=== PATIENT | male | born 1945 | race Asian ===

== ENCOUNTER 2017-10-20 18:19 | Emergency (ER) | payer MEDICAID ==
[~2017-10-20] VITALS: Ht 172.7 cm; Wt 100.0 kg
[~2017-10-20 18:19] MED LIST: APIX5TAB PO; FAMO20TA8 PO; GLIP10TA10 PO; LOSA1TAB34 PO; METF10004 PO; VITA1TAB20 PO
[2017-10-20 19:24] LABS: BASOPHILS % 0.4 % (0.0-2.0); EOSINOPHILS % 2.4 % (0.0-5.0); HEMOGLOBIN. 14.6 g/dL (14.0-18.0); LYMPHOCYTES % 23.3 % (20.0-50.0); MEAN CORPUSCULAR HEMOGLOBIN 31.8 pg (28.0-32.0); MEAN CORPUSCULAR VOLUME 91.3 fL (80.0-94.0); MEAN PLATELET VOLUME 7.7 fl (7.4-10.4); MONOCYTES % 10.4 % (2.0-8.0); NEUTROPHILS % 63.5 % (40.0-76.0); PLATELET 178 x1000/uL (130-400); RED CELL DISTRIBUTION WIDTH 12.5 % (11.6-14.6)
[2017-10-20 19:31] LABS: PROTHROMBIN TIME 10.2 sec (9.1-11.1)
[2017-10-20 19:32] LABS: CHLORIDE 100 mEq/L (98-107)
[2017-10-20 21:08] VITALS: BP 156/83
== END 2017-10-20 21:33 | disposition home or self-care (01) ==
LOC: ER 18:19
DX: S09.8XXA Other specified injuries of head, initial encounter (principal); E11.9 Type 2 diabetes mellitus without complications; I10 Essential (primary) hypertension; Z86.73 Personal history of transient ischemic attack (TIA), and cerebral infarction without residual deficits; Z79.84 Long term (current) use of oral hypoglycemic drugs; W01.0XXA Fall on same level from slipping, tripping and stumbling without subsequent striking against object, initial encounter; Y93.89 Activity, other specified; Y92.018 Other place in single-family (private) house as the place of occurrence of the external cause
CPT/HCPCS: 36415; 70450; 80053; 85025; 85610; 99285

== ENCOUNTER 2017-11-19 16:55 | Inpatient (IN) | payer MEDICAID ==
[~2017-11-19] VITALS: Ht 165.1 cm; Wt 85.3 kg
[2017-11-19 19:50] LABS: BASOPHILS % 0.3 % (0.0-2.0); EOSINOPHILS % 1.5 % (0.0-5.0); HEMATOCRIT. 47.8 % (42.0-52.0); HEMOGLOBIN. 16.4 g/dL (14.0-18.0); LYMPHOCYTES % 13.2 % (20.0-50.0); MEAN CORPUSCULAR HEMOGLOBIN 31.6 pg (28.0-32.0); MEAN CORPUSCULAR VOLUME 92.4 fL (80.0-94.0); MEAN PLATELET VOLUME 7.9 fl (7.4-10.4); PLATELET 173 x1000/uL (130-400); RED BLOOD CELL COUNT 5.17 mill/uL (4.7-6.1); RED CELL DISTRIBUTION WIDTH 12.7 % (11.6-14.6)
[2017-11-19 19:57] LABS: CHLORIDE 100 mEq/L (98-107)
[2017-11-19] MEDS ORDERED: CEFTRIAXONE 1 G PREMIX 50 ML IV ONE (22:00)
[2017-11-19] MEDS ORDERED: AZITHROMYCIN 500 MG in DEXT 5% WATER 250 ML IV ONE (22:00)
[2017-11-19] MEDS ORDERED: IOHEXOL-350 100 ML BOTTLE ONE (23:17)
[2017-11-20] MEDS ORDERED: HYDROCODONE/ACETAMINOPHEN 5/325MG TABLET PO PRN
[2017-11-20] MEDS ORDERED: IPRATROPIUM/ALBUTEROL 0.5-3(2.5)MG/3ML NEB INH PRN
[2017-11-20] MEDS ORDERED: ONDANSETRON HCL 4MG/2ML INJ IV PRN
[2017-11-20] MEDS ORDERED: DOCUSATE SODIUM 100MG CAPSULE PO PRN
[2017-11-20] MEDS ORDERED: GUAIFENESIN 200MG/10ML SUGAR FREE UDC PO PRN
[2017-11-20] MEDS ORDERED: ACETAMINOPHEN 325MG TABLET PO PRN
[2017-11-20] MEDS ORDERED: CEFTRIAXONE 1 G PREMIX 50 ML IV SCH
[2017-11-20] MEDS: AZITHROMYCIN 500 MG in DEXT 5% WATER 250 ML IV SCH (01:56)
[2017-11-20 04:00] VITALS: BP 142/80
[2017-11-20] MEDS ORDERED: DEXTROSE 50% WATER 50ML SYRINGE IV PRN (05:15)
[2017-11-20] MEDS ORDERED: INSU100I28 SQ (05:35)
[2017-11-20] MEDS ORDERED: SITA1TAB6 MT (05:35)
[2017-11-20 06:17] LABS: CLARITY URINE CLEAR (CLEAR); COLOR URINE YELLOW (YELLOW); KETONES URINE TRACE (NEGATIVE); LEUKOCYTE ESTERASE URINE 1+ (NEGATIVE); NITRITE URINE NEGATIVE (NEGATIVE); OCCULT BLOOD URINE TRACE (NEGATIVE); PROTEIN URINE 1+ (NEGATIVE); SPECIFIC GRAVITY URINE 1.047 (1.005-1.030); UROBILINOGEN URINE 0.2 E.U./dL (0.2-1.0)
[2017-11-20] MEDS: BLOOD SUGAR DIAGNOSTIC STRIP TEST SCH ×4 (06:25→21:00)
[2017-11-20] MEDS: INSULIN LISPRO 100 UNITS/ML SUBCUT SCH ×4 (06:25→21:01)
[2017-11-20 06:45] LABS: CANNABINOID URINE SCREEN NEGATIVE (NEGATIVE); OPIATES URINE SCREEN NEGATIVE (NEGATIVE); PHENCYCLIDINE URINE SCREEN NEGATIVE (NEGATIVE)
[2017-11-20 06:47] LABS: *AMPHETAMINES SCREEN URINE NEGATIVE (NEGATIVE); *BARBITURATES SCREEN URINE NEGATIVE (NEGATIVE); *BENZODIAZEPINES SCREEN URINE NEGATIVE (NEGATIVE); *COCAINE SCREEN URINE NEGATIVE (NEGATIVE); METHADONE URINE SCREEN NEGATIVE (NEGATIVE)
[2017-11-20] MEDS: CEFTRIAXONE 1 G PREMIX 50 ML IV SCH (06:54)
[2017-11-20 08:00] VITALS: BP 156/78
[2017-11-20 09:44] LABS: BASOPHILS % 0.2 % (0.0-2.0); EOSINOPHILS % 1.4 % (0.0-5.0); HEMATOCRIT. 44.5 % (42.0-52.0); HEMOGLOBIN. 15.7 g/dL (14.0-18.0); MEAN CORPUSCULAR HEMOGLOBIN 32.2 pg (28.0-32.0); MEAN CORPUSCULAR VOLUME 91.7 fL (80.0-94.0); MEAN PLATELET VOLUME 7.9 fl (7.4-10.4); MONOCYTES % 7.9 % (2.0-8.0); NEUTROPHILS % 79.5 % (40.0-76.0); PLATELET 159 x1000/uL (130-400); RED BLOOD CELL COUNT 4.85 mill/uL (4.7-6.1); RED CELL DISTRIBUTION WIDTH 12.5 % (11.6-14.6)
[2017-11-20 10:13] LABS: CHLORIDE 98 mEq/L (98-107)
[2017-11-20 10:26] LABS: LDL CHOLESTEROL 76 mg/dL (5-100)
[2017-11-20 10:27] LABS: CREATINE KINASE 48 IU/L (39-308)
[2017-11-20 10:29] LABS: CREATINE KINASE MB FRACTION < 1.0 ng/mL (0.5-3.6)
[2017-11-20 10:36] LABS: HDL CHOLESTEROL 38 mg/dL (40-59)
[2017-11-20 12:00] VITALS: BP 145/89
[2017-11-20] MEDS: FAMOTIDINE 20MG TABLET PO SCH (13:30)
[2017-11-20] MEDS: HYDROCHLOROTHIAZIDE 12.5MG CAPSULE PO SCH (13:30)
[2017-11-20] MEDS: LOSARTAN POTASSIUM 50 MG TABLET PO SCH (13:30)
[2017-11-20 16:00] VITALS: BP_SYST 159; BP_SYST 163; BP_DIAS 70; BP_DIAS 78
[2017-11-20] MEDS: ENOXAPARIN 100MG/ML SYR SUBCUT SCH ×2 (16:37→22:07)
[2017-11-20 20:00] VITALS: BP 168/83
[2017-11-20 20:30] VITALS: BP 137/82
[2017-11-21] VITALS: BP 150/90
[2017-11-21] MEDS: AZITHROMYCIN 500 MG in DEXT 5% WATER 250 ML IV SCH (01:53)
[2017-11-21 04:00] VITALS: BP_SYST 166; BP_SYST 183; BP_DIAS 101; BP_DIAS 93
[2017-11-21] MEDS: CEFTRIAXONE 1 G PREMIX 50 ML IV SCH (05:23)
[2017-11-21] MEDS: BLOOD SUGAR DIAGNOSTIC STRIP TEST SCH ×4 (06:30→21:48)
[2017-11-21] MEDS: INSULIN LISPRO 100 UNITS/ML SUBCUT SCH ×4 (06:30→21:48)
[2017-11-21 06:46] LABS: BASOPHILS % 0.2 % (0.0-2.0); EOSINOPHILS % 1.8 % (0.0-5.0); HEMATOCRIT. 44.4 % (42.0-52.0); HEMOGLOBIN. 15.7 g/dL (14.0-18.0); LYMPHOCYTES % 13.5 % (20.0-50.0); MEAN CORPUSCULAR HEMOGLOBIN 32.6 pg (28.0-32.0); MEAN CORPUSCULAR VOLUME 92.1 fL (80.0-94.0); MEAN PLATELET VOLUME 8.4 fl (7.4-10.4); MONOCYTES % 8.1 % (2.0-8.0); NEUTROPHILS % 76.4 % (40.0-76.0); PLATELET 156 x1000/uL (130-400); RED BLOOD CELL COUNT 4.81 mill/uL (4.7-6.1); RED CELL DISTRIBUTION WIDTH 12.1 % (11.6-14.6)
[2017-11-21 08:00] VITALS: BP 129/72
[2017-11-21 08:01] LABS: CHLORIDE 98 mEq/L (98-107)
[2017-11-21 08:08] LABS: PHOSPHORUS 3.2 mg/dL (2.5-4.9)
[2017-11-21] MEDS: HYDROCHLOROTHIAZIDE 12.5MG CAPSULE PO SCH (09:33)
[2017-11-21] MEDS: ENOXAPARIN 100MG/ML SYR SUBCUT SCH ×2 (09:33→21:41)
[2017-11-21] MEDS: FAMOTIDINE 20MG TABLET PO SCH (09:33)
[2017-11-21] MEDS: LOSARTAN POTASSIUM 50 MG TABLET PO SCH ×2 (09:33→18:13)
[2017-11-21 12:00] VITALS: BP 148/82
[2017-11-21] MEDS: AMLODIPINE 5MG TABLET PO SCH ×2 (12:43→21:41)
[2017-11-21 16:00] VITALS: BP 136/78
[2017-11-21 20:00] VITALS: BP_SYST 114; BP_SYST 141; BP_DIAS 74; BP_DIAS 83
[2017-11-22] VITALS (7 sets, daily range): BP systolic 125–152; BP diastolic 68–89
[2017-11-22] MEDS: AZITHROMYCIN 500 MG in DEXT 5% WATER 250 ML IV SCH (01:14)
[2017-11-22] MEDS: CEFTRIAXONE 1 G PREMIX 50 ML IV SCH (05:22)
[2017-11-22] MEDS: BLOOD SUGAR DIAGNOSTIC STRIP TEST SCH ×4 (06:34→21:19)
[2017-11-22] MEDS: INSULIN LISPRO 100 UNITS/ML SUBCUT SCH ×5 (06:49→21:17)
[2017-11-22 08:05] LABS: BASOPHILS % 0.5 % (0.0-2.0); EOSINOPHILS % 1.3 % (0.0-5.0); HEMATOCRIT. 45.7 % (42.0-52.0); HEMOGLOBIN. 15.8 g/dL (14.0-18.0); LYMPHOCYTES % 11.5 % (20.0-50.0); MEAN CORPUSCULAR HEMOGLOBIN 31.8 pg (28.0-32.0); MEAN CORPUSCULAR VOLUME 92.2 fL (80.0-94.0); MONOCYTES % 8.1 % (2.0-8.0); NEUTROPHILS % 78.6 % (40.0-76.0); PLATELET 162 x1000/uL (130-400); RED BLOOD CELL COUNT 4.95 mill/uL (4.7-6.1); RED CELL DISTRIBUTION WIDTH 12.5 % (11.6-14.6)
[2017-11-22 08:52] LABS: CHLORIDE 99 mEq/L (98-107)
[2017-11-22] MEDS: ENOXAPARIN 100MG/ML SYR SUBCUT SCH ×2 (09:29→21:15)
[2017-11-22] MEDS: FAMOTIDINE 20MG TABLET PO SCH (09:30)
[2017-11-22] MEDS: AMLODIPINE 5MG TABLET PO SCH ×2 (09:30→21:15)
[2017-11-22] MEDS: LOSARTAN POTASSIUM 50 MG TABLET PO SCH ×2 (09:30→17:44)
[2017-11-23] VITALS: BP 151/87
[2017-11-23] MEDS: AZITHROMYCIN 500 MG in DEXT 5% WATER 250 ML IV SCH ×2 (01:12→01:15)
[2017-11-23 04:00] VITALS: BP 139/80
[2017-11-23 05:56] LABS: CHLORIDE 100 mEq/L (98-107)
[2017-11-23 06:08] LABS: PHOSPHORUS 2.5 mg/dL (2.5-4.9)
[2017-11-23 06:11] LABS: BASOPHILS % 0.2 % (0.0-2.0); EOSINOPHILS % 1.5 % (0.0-5.0); HEMATOCRIT. 46.5 % (42.0-52.0); HEMOGLOBIN. 16.4 g/dL (14.0-18.0); MEAN CORPUSCULAR HEMOGLOBIN 32.6 pg (28.0-32.0); MEAN CORPUSCULAR VOLUME 92.6 fL (80.0-94.0); MEAN PLATELET VOLUME 8.2 fl (7.4-10.4); MONOCYTES % 8.1 % (2.0-8.0); NEUTROPHILS % 77.2 % (40.0-76.0); PLATELET 164 x1000/uL (130-400); RED BLOOD CELL COUNT 5.02 mill/uL (4.7-6.1); RED CELL DISTRIBUTION WIDTH 12.3 % (11.6-14.6)
[2017-11-23] MEDS: BLOOD SUGAR DIAGNOSTIC STRIP TEST SCH ×2 (06:41→12:22)
[2017-11-23] MEDS: INSULIN LISPRO 100 UNITS/ML SUBCUT SCH ×2 (07:15→12:55)
[2017-11-23 08:00] VITALS: BP 143/84
[2017-11-23] MEDS ORDERED: CEFTRIAXONE 1 G PREMIX 50 ML IV SCH (08:00)
[2017-11-23] MEDS: LOSARTAN POTASSIUM 50 MG TABLET PO SCH (10:09)
[2017-11-23] MEDS: FAMOTIDINE 20MG TABLET PO SCH (10:10)
[2017-11-23] MEDS: AMLODIPINE 5MG TABLET PO SCH (10:10)
[2017-11-23] MEDS: ENOXAPARIN 100MG/ML SYR SUBCUT SCH (10:11)
[2017-11-23 12:00] VITALS: BP 135/72
[2017-11-23 14:46] VITALS: BP 135/72
== END 2017-11-23 16:02 | disposition home health service (06) | DRG 197 ==
LOC: ER 16:55 → 5WST 22:13 → EDBEDREQTM 22:27 → EDBEDREQ 22:27 → ENRESERV 11-20 02:50 → ER 11-20 03:48
PROVIDERS: ADMIT Internal Medicine; ATTEND Internal Medicine
DX: I82.411 Acute embolism and thrombosis of right femoral vein (principal); L89.150 Pressure ulcer of sacral region, unstageable; L89.300 Pressure ulcer of unspecified buttock, unstageable; I82.412 Acute embolism and thrombosis of left femoral vein; E11.40 Type 2 diabetes mellitus with diabetic neuropathy, unspecified; J44.9 Chronic obstructive pulmonary disease, unspecified; N39.0 Urinary tract infection, site not specified; E11.319 Type 2 diabetes mellitus with unspecified diabetic retinopathy without macular edema; I82.431 Acute embolism and thrombosis of right popliteal vein; J98.11 Atelectasis; I10 Essential (primary) hypertension; E11.36 Type 2 diabetes mellitus with diabetic cataract; E66.9 Obesity, unspecified; I82.503 Chronic embolism and thrombosis of unspecified deep veins of lower extremity, bilateral; S20.319A Abrasion of unspecified front wall of thorax, initial encounter; I70.90 Unspecified atherosclerosis; S80.812A Abrasion, left lower leg, initial encounter; S80.811A Abrasion, right lower leg, initial encounter; R29.6 Repeated falls; Z86.73 Personal history of transient ischemic attack (TIA), and cerebral infarction without residual deficits; Z79.01 Long term (current) use of anticoagulants; Z79.4 Long term (current) use of insulin; Z82.49 Family history of ischemic heart disease and other diseases of the circulatory system; Z83.3 Family history of diabetes mellitus; Z68.31 Body mass index [BMI] 31.0-31.9, adult; Z79.84 Long term (current) use of oral hypoglycemic drugs; Z79.899 Other long term (current) drug therapy; X58.XXXA Exposure to other specified factors, initial encounter; Y93.89 Activity, other specified; Y92.89 Other specified places as the place of occurrence of the external cause; Y99.8 Other external cause status
CPT/HCPCS: 36415; 70450; 71045; 71275; 80048; 80053; 80061; 80305; 81003; 82550; 82553; 82962; 83735; 83880; 84100; 84134; 84443; 84484; 85025; 85610; 87040; 93005; 93306; 93880; 93970; 96365; 97162; 97166; 97530; 99285; J0456; J0696; J1650; J1815; J7040; J7050; J7060; Q9967

== ENCOUNTER → 2019-12-24 | Outpatient (CLI) | payer MEDICARE, MEDICAID ==
[~2019-12-24] MED LIST changes: +BARIUM SULFATE 176 GM SUSP.RECON ONE; +EZ-HD SUSPENSION(BARIUM SULFATE 340GM) PO ONE; +INSU100I28 SQ; -METF10004 PO; +SITA1TAB6 MT; -VITA1TAB20 PO
== END | disposition home or self-care (01) ==
LOC: RAD 11:11
PROVIDERS: ATTEND Registered Nurse General Practice
DX: R13.10 Dysphagia, unspecified (principal)
CPT/HCPCS: 74220

== ENCOUNTER 2020-06-28 20:01 | Emergency (ER) | payer MEDICARE, MEDICAID ==
[~2020-06-28] VITALS: Ht 167.6 cm; Wt 80.0 kg
[~2020-06-28 20:01] MED LIST changes: -BARIUM SULFATE 176 GM SUSP.RECON ONE; -EZ-HD SUSPENSION(BARIUM SULFATE 340GM) PO ONE
[2020-06-28] MEDS ORDERED: ONDANSETRON HCL 4MG/2ML INJ IV STA (23:31)
[2020-06-28] MEDS ORDERED: MORPHINE SULFATE 4 MG/ML CPJ (NOT FOR IM USE) IV STA (23:31)
[2020-06-28] MEDS ORDERED: SODIUM CHLORIDE 0.9% 1,000 ML IV ONE (23:45)
[2020-06-29 00:28] LABS: HEMATOCRIT. 45.9 % (42.0-52.0); HEMOGLOBIN. 15.6 g/dL (14.0-18.0); MEAN CORPUSCULAR HEMOGLOBIN 30.9 pg (28.0-32.0); MEAN CORPUSCULAR VOLUME 90.8 fL (80.0-94.0); MEAN PLATELET VOLUME 8.6 fl (7.4-10.4); PLATELET 227 x1000/uL (130-400); RED BLOOD CELL COUNT 5.06 mill/uL (4.7-6.1); RED CELL DISTRIBUTION WIDTH 12.4 % (11.6-14.6)
[2020-06-29 00:34] LABS: CHLORIDE 97 mEq/L (98-107); PROTHROMBIN TIME 10.6 sec (9.6-11.0)
[2020-06-29] MEDS ORDERED: MORPHINE SULFATE 4 MG/ML CPJ (NOT FOR IM USE) IV ONE (02:30)
[2020-06-29 03:19] LABS: PLATELET ESTIMATE NORMAL
[2020-06-29] MEDS ORDERED: PIPERACILLIN/TAZ 3.375G PREMIX 50 ML IV ONE (05:15)
[2020-06-29] MEDS ORDERED: METRONIDAZOLE 500 MG PREMIX 100 ML IV ONE (05:15)
[2020-06-29 07:00] VITALS: BP 118/68
== END 2020-06-29 07:24 | disposition short-term general hospital (02) ==
LOC: ER 20:01 → CANBEDREQ 06-29 05:03 → ER 06-29 07:24
DX: K81.9 Cholecystitis, unspecified (principal); E86.0 Dehydration; Z79.01 Long term (current) use of anticoagulants; Z86.718 Personal history of other venous thrombosis and embolism; Z79.899 Other long term (current) drug therapy; Z88.8 Allergy status to other drugs, medicaments and biological substances; Z79.4 Long term (current) use of insulin
CPT/HCPCS: 36415; 71045; 74176; 76705; 80053; 83605; 83690; 85025; 85610; 93005; 96361; 96365; 96367; 96375; 96376; 99285; J2270; J2405; J2543; J3490; J7030